=== PATIENT | female | born 1945 | race Caucasian/White ===

== ENCOUNTER → 2016-12-29 | Outpatient (CLI) | payer OTHER, MEDICARE ==
[~2016-12-29] MED LIST: DILT-115 PO; EFFSR150 PO; LATA0.009 OPB; ONDA4TAB10 SL; OXYC-57 PO; POTA1080 PO; PRLSR20 PO
== END | disposition home or self-care (01) ==
LOC: C.CPL 10:57
PROVIDERS: ATTEND Orthopaedic Surgery Sports Medicine
DX: Z01.810 Encounter for preprocedural cardiovascular examination (principal)

== ENCOUNTER → 2017-01-11 | Outpatient (CLI) | payer OTHER, MEDICARE ==
--- NOTE | 2017-01-11 11:12 | DIAGNOSTIC IMAGING REPORT ---
HEAD CT NONCONTRAST CT DOSE: 638.56 mGycm HISTORY: Headache R51 [id number] TECHNIQUE: Multiaxial CT images of the head were performed without the use of intravenous contrast. Comparison: None. Findings: The paranasal sinuses and mastoid air cells are clear. The calvarium and skull base are intact. The ventricles and sulci are within normal limits. There is no mass, hematoma, midline shift, or acute infarct. Impression: No acute intracranial abnormality. Electronically signed by: Hesham Leal M.D. 01/11/2017 11:11 AM Dictated Date/Time: 01/11/2017 11:10 AM
== END | disposition home or self-care (01) ==
LOC: C.CTS 10:59
PROVIDERS: ATTEND Family Medicine
DX: R51 Headache (principal); W19.XXXA Unspecified fall, initial encounter

== ENCOUNTER → 2017-03-13 | Outpatient (CLI) | payer OTHER, MEDICARE ==
[2017-03-13 10:35] LABS: CALCIUM 9.1 mg/dl (8.5-10.1)
[2017-03-13 10:37] LABS: ALT/SGPT 32 U/L (12-78); AST/SGOT 18 U/L (15-37); BLOOD UREA NITROGEN 28 mg/dl (7-18); BUN/CREATININE RATIO 23.6 (10-20); CARBON DIOXIDE 29 mmol/L (21-32); CHLORIDE 106 mmol/L (98-107); CHOLESTEROL 213 mg/dl (0-200); GLUCOSE 109 mg/dl (70-99); POTASSIUM 4.2 mmol/L (3.5-5.1); SODIUM 142 mmol/L (136-145); TRIGLYCERIDES 136 mg/dl (0-150); VERY LOW DENSITY LIPOPROT CALC 27 mg/dl
[2017-03-13 10:39] LABS: ALB/GLOB RATIO 1.1 (0.9-2); ALKALINE PHOSPHATASE 140 U/L (45-117); CHOLESTEROL/HDL RATIO 2.3; HDL CHOLESTEROL 92 mg/dl; LDL CHOLESTEROL CALCULATED 94 mg/dl
[2017-03-13 11:03] LABS: ESTIMATED AVERAGE GLUCOSE 117 mg/dl; HA1C FLAG Normal (Normal)
== END | disposition home or self-care (01) ==
LOC: C.LAB1850 09:32
PROVIDERS: ATTEND Internal Medicine
DX: E78.00 Pure hypercholesterolemia, unspecified (principal); N20.0 Calculus of kidney; R73.01 Impaired fasting glucose

== ENCOUNTER 2017-06-16 03:55 | Emergency (ER) | payer OTHER, MEDICARE ==
[~2017-06-16] VITALS: Ht 160 cm; Wt 113.7 kg
[~2017-06-16 03:55] MED LIST changes: -ONDA4TAB10 SL; -OXYC-57 PO
[2017-06-16 04:01] VITALS: BP 168/96; PULSE 106; TEMP 36.7; O2SAT 94; Ht 160 cm; Wt 113.7 kg
[2017-06-16] MEDS ORDERED: OXYCODONE/ACETAMINOPHEN 5-325 TAB PO ONE (04:30)
--- NOTE | 2017-06-16 04:34 | EMERGENCY ROOM VISIT NOTE ---
History Report prepared by Scribe: Slava Mcclure Under the Supervision of: Dr. Arnaldo Lopez D.O. First contact with patient: 04:05 Chief Complaint: FOOT PAIN Stated Complaint: FOOT PAIN History of Present Illness The patient is a 72 year old female who presents to the Emergency Room with complaints of constant right third toe pain beginning just prior to arrival. She states that she got up to go to the bathroom during the night and stubbed her toe on a door. She states that her toe appears stuck to the side. Source of History: patient Onset: Just prior to arrival Position: toe(s) (right third) Timing: constant Review of Systems See HPI for pertinent positives and negatives. A total of six systems were reviewed and were otherwise negative. Past Medical & Surgical Medical Problems: (1) Depressive Disorder Nec (2) Diverticulitis Colon (W/O Ment Of Hemorrhage) (3) Diverticulosis Colon (W/O Ment Of Hemorrhage) (4) Esophageal Reflux (5) Hypertension Nos (6) Migraine Unspecified W/O Intract Mgrn W/O Status Migrainosus (7) Pure Hypercholesterolem Surgical Problems: (1) Postoperative state (2) S/P cervical spinal fusion (3) Tubal Ligation Status Family History FH: myocardial infarction Social History Smoking Status: Never Smoker Drug Use: none Marital Status: Occupation Status: retired Current/Historical Medications Scheduled Diltiazem Hcl Ext Rel (Tiazac), 240 MG PO DAILY Latanoprost 0.005% Oph (Xalatan 0.005% Oph), 1 DROP OPB HS Omeprazole (Prilosec), 20 MG PO DAILY Potassium Citrate (Urocit-K), 1,620 MG PO DAILY Venlafaxine Ext Rel (Effexor Extended Rel *), 150 MG PO DAILY Allergies Coded Allergies: No Known Allergies (Verified , 05/30/16) Physical Exam Vital Signs Date Time Temp Pulse Resp B/P (MAP) Pulse Ox O2 Delivery O2 Flow Rate FiO2 06/16/17 04:01 36.7 106 18 168/96 94 Room Air Physical Exam GENERAL: Awake, alert, well-appearing, in no distress MUSCULOSKELETAL: Chest examination reveals no tenderness. The back is symmetrical on inspection without obvious abnormality. There is no CVA tenderness to palpation. No joint edema. Right third toe is deformed and displaced. NVI distally and proximally. NEURO: Normal sensorium. No sensory or motor deficits noted. SKIN: No rash or jaundice noted. Medical Decision & Procedures ER Provider Diagnostic Interpretation: Three View Right Foot X-ray interpreted by me: positive for fracture of the right third phalanx. Medications Administered Medications (Trade) Dose Ordered Sig/Mckenna Route Start Time Stop Time Status Last Admin Dose Admin Oxycodone/ Acetaminophen (Percocet 5-325mg Tab) 1 tab NOW ONCE PO 06/16/17 04:30 06/16/17 04:31 DC 06/16/17 04:30 1 TAB ED Course 0415: The patient was evaluated in room B10. A complete history and physical exam was performed. 0430: Ordered Percocet 5-325 mg 1 tab PO. 0435: I reevaluated the patient. Discussed results and discharge instructions: she verbalized understanding and agreement. The patient is ready for discharge. Patient was placed in a hard sole shoe as well as had her toes mundo taped. Patient does have pain medicine at home she was given Percocet here she will be referred to orthopedics Medical Decision Differential diagnoses include but are not limited to; fracture, contusion, and dislocation. Impression Primary Impression: Closed fracture of phalanx of right third toe Scribe Attestation The scribe's documentation has been prepared under my direction and personally reviewed by me in its entirety. I confirm that the note above accurately reflects all work, treatment, procedures, and medical decision making performed by me. Departure Information Dispostion Home / Self-Care Referrals Pro,Luis Orr M.D. (PCP) Damien Dubois MD Patient Instructions ED Fx Toe Closed, My [facility]
--- NOTE | 2017-06-16 07:59 | DIAGNOSTIC IMAGING REPORT ---
RIGHT FOOT MIN 3 VIEWS ROUTINE CLINICAL HISTORY: Right foot pain following injury. COMPARISON: None FINDINGS: Alignment of the tarsometatarsal joints is anatomic. There is moderate arthritis of these articulations. There is an acute oblique mildly displaced fracture within the base and proximal shaft of the proximal phalanx of the right third toe. There is lateral deviation of the third toe. IMPRESSION: Oblique mildly displaced acute fracture of the proximal phalanx of the right third toe. Electronically signed by: Brenton Cash M.D. 06/16/2017 7:58 AM Dictated Date/Time: 06/16/2017 7:56 AM
== END 2017-06-16 04:44 | disposition home or self-care (01) ==
LOC: C.EDB 03:56
DX: S92.331A Displaced fracture of third metatarsal bone, right foot, initial encounter for closed fracture (principal); W22.09XA Striking against other stationary object, initial encounter; F32.9 Major depressive disorder, single episode, unspecified; K21.9 Gastro-esophageal reflux disease without esophagitis; I10 Essential (primary) hypertension; E78.00 Pure hypercholesterolemia, unspecified; Z98.1 Arthrodesis status; Z98.51 Tubal ligation status; Z82.49 Family history of ischemic heart disease and other diseases of the circulatory system; Z79.899 Other long term (current) drug therapy

== ENCOUNTER → 2017-07-12 | Outpatient (CLI) | payer OTHER, MEDICARE ==
--- NOTE | 2017-07-12 11:20 | DIAGNOSTIC IMAGING REPORT ---
RIGHT FOOT 3 VIEWS HISTORY: Follow-up right foot fracture. COMPARISON: Right foot 06/16/2017. FINDINGS: Improved alignment of the oblique fracture within the proximal shaft of the proximal phalanx of the right third toe. There is approximately 2 mm of lateral displacement remaining. No significant bony bridging or callus formation at this time to suggest healing. Plantar heel spur. Degenerative changes within the midfoot. The Lisfranc joint is intact. No dislocation. Mild soft tissue swelling at the third toe. IMPRESSION: Oblique slightly displaced fracture at the proximal phalanx of the right third toe which demonstrates improved anatomic alignment. However, no significant healing at this time. Electronically signed by: Andrea Daigle M.D. 07/12/2017 11:19 AM Dictated Date/Time: 07/12/2017 11:17 AM
== END | disposition home or self-care (01) ==
LOC: C.RDSM 11:15
PROVIDERS: ATTEND Physician Assistant
DX: S92.511A Displaced fracture of proximal phalanx of right lesser toe(s), initial encounter for closed fracture (principal); X58.XXXA Exposure to other specified factors, initial encounter

== ENCOUNTER → 2017-08-02 | Outpatient (CLI) | payer OTHER, MEDICARE ==
--- NOTE | 2017-08-02 14:45 | DIAGNOSTIC IMAGING REPORT ---
RIGHT FOOT 3 VIEWS HISTORY: Follow-up right third toe fracture. COMPARISON: Right foot 07/12/2017. FINDINGS: There is again noted an oblique slightly displaced fracture within the mid shaft of the proximal phalanx of the third toe. Remains unchanged. This demonstrates up to 2 mm of lateral displacement. There is interval development of surrounding callus formation consistent with healing. No additional fractures identified. Soft tissue swelling at the third toe persists. Plantar heel spur. No radiopaque foreign bodies. IMPRESSION: Interval healing within the slightly displaced fracture at the proximal phalanx of the right third toe. Electronically signed by: Andrea Daigle M.D. 08/02/2017 2:44 PM Dictated Date/Time: 08/02/2017 2:41 PM
== END | disposition home or self-care (01) ==
LOC: C.RDSM 09:47
PROVIDERS: ATTEND Physician Assistant
DX: S92.511D Displaced fracture of proximal phalanx of right lesser toe(s), subsequent encounter for fracture with routine healing (principal); X58.XXXD Exposure to other specified factors, subsequent encounter

== ENCOUNTER → 2017-08-08 | Outpatient (CLI) | payer OTHER, MEDICARE ==
--- NOTE | 2017-08-08 07:55 | DIAGNOSTIC IMAGING REPORT ---
KUB CLINICAL HISTORY: Nephrolithiasis. FINDINGS: 2 AP supine abdominal radiographs are correlated with abdominal CT dated 11/13/2016. There is a nonobstructed abdominal bowel gas pattern noting moderate colonic fecal retention. There is no radiographic evidence of nephrolithiasis. Numerous phleboliths are identified in the pelvis. Cholecystectomy clips are noted. The skeletal structures are osteopenic. Moderate lumbosacral spondylosis is observed. IMPRESSION: There is no radiographic evidence of nephrolithiasis on today's examination. Electronically signed by: Shaka Naqvi M.D. 08/08/2017 7:53 AM Dictated Date/Time: 08/08/2017 7:52 AM
== END | disposition home or self-care (01) ==
LOC: C.RAD 07:23
PROVIDERS: ATTEND Urology
DX: N20.9 Urinary calculus, unspecified (principal)

== ENCOUNTER → 2017-08-23 | Outpatient (CLI) | payer OTHER, MEDICARE ==
[2017-08-23 12:51] LABS: MEAN CELL VOLUME 77.2 fL (80-100); MEAN CORPUSCULAR HEMOGLOBIN 24.4 pg (25-34); MEAN CORPUSCULAR HGB CONC 31.6 g/dl (32-36); MEAN PLATELET VOLUME 11.6 fL (7.4-10.4); PLATELET COUNT 313 K/uL (130-400); RED BLOOD COUNT 4.92 M/uL (4.2-5.4); WHITE BLOOD COUNT 4.91 K/uL (4.8-10.8)
[2017-08-23 13:42] LABS: ALT/SGPT 19 U/L (12-78); BLOOD UREA NITROGEN 18 mg/dl (7-18); BUN/CREATININE RATIO 16.5 (10-20); CALCIUM 9.2 mg/dl (8.5-10.1); CARBON DIOXIDE 27 mmol/L (21-32); CHLORIDE 108 mmol/L (98-107); CHOLESTEROL 217 mg/dl (0-200); GLUCOSE 106 mg/dl (70-99); POTASSIUM 4.3 mmol/L (3.5-5.1); SODIUM 142 mmol/L (136-145)
[2017-08-23 13:52] LABS: ALKALINE PHOSPHATASE 130 U/L (45-117); AST/SGOT 15 U/L (15-37); CHOLESTEROL/HDL RATIO 2.5; HDL CHOLESTEROL 88 mg/dl; LDL CHOLESTEROL CALCULATED 98 mg/dl; TRIGLYCERIDES 156 mg/dl (0-150); VERY LOW DENSITY LIPOPROT CALC 31 mg/dl
== END | disposition home or self-care (01) ==
LOC: C.LAB1850 10:23
PROVIDERS: ATTEND Internal Medicine
DX: R73.01 Impaired fasting glucose (principal); N20.0 Calculus of kidney; R74.8 Abnormal levels of other serum enzymes; E04.1 Nontoxic single thyroid nodule; E78.00 Pure hypercholesterolemia, unspecified

== ENCOUNTER → 2017-10-01 | Outpatient (CLI) | payer OTHER, MEDICARE | END | disposition home or self-care (01) | LOC: C.MAMM 09:48 | PROVIDERS: ATTEND Internal Medicine | DX: S92.919A Unspecified fracture of unspecified toe(s), initial encounter for closed fracture (principal); X58.XXXA Exposure to other specified factors, initial encounter ==

== ENCOUNTER 2018-02-07 03:23 | Emergency (ER) | payer OTHER, MEDICARE ==
[~2018-02-07] VITALS: Ht 160 cm; Wt 109.0 kg
[2018-02-07 03:28] VITALS: TEMP 36.4; Ht 160 cm; Wt 109.0 kg
[2018-02-07] MEDS ORDERED: SODIUM CHLORIDE 0.9% 500ML 500 ML IV STA (03:38)
[2018-02-07] MEDS ORDERED: ONDANSETRON INJ 2 MG/ML 2 ML VIAL IV STA (03:38)
[2018-02-07] MEDS ORDERED: MoRPHine SULFATE 4 MG/ML 1 ML CARP\\VIAL IV STA ×2 (03:38→05:09)
[2018-02-07 04:14] LABS: BASO % 0.3 %; BASO ABS # 0.03 K/uL (0-0.2); EOS % 0.5 %; EOS ABS # 0.06 K/uL (0-0.5); HEMOGLOBIN 11.8 g/dL (12.0-16.0); IG# 0.02 K/uL (0.00-0.02); LYMPH % 7.3 %; LYMPH ABS # 0.84 K/uL (1.2-3.4); MEAN CELL VOLUME 73.6 fL (80-100); MEAN CORPUSCULAR HEMOGLOBIN 23.5 pg (25-34); MEAN CORPUSCULAR HGB CONC 31.9 g/dl (32-36); MEAN PLATELET VOLUME 10.4 fL (7.4-10.4); MONO % 9.5 %; NEUT % 82.2 %; NEUT ABS # 9.47 K/uL (1.4-6.5); PLATELET COUNT 308 K/uL (130-400); RED CELL DISTRIBUTION WIDTH CV 17.3 % (11.5-14.5); RED CELL DISTRIBUTION WIDTH SD 46.5 fL (36.4-46.3); WHITE BLOOD COUNT 11.52 K/uL (4.8-10.8)
[2018-02-07 04:33] LABS: ALBUMIN 3.5 gm/dl (3.4-5.0); ALT/SGPT 17 U/L (12-78); AST/SGOT 8 U/L (15-37); BLOOD UREA NITROGEN 28 mg/dl (7-18); CALCIUM 9.2 mg/dl (8.5-10.1); CARBON DIOXIDE 25 mmol/L (21-32); CREATININE 1.21 mg/dl (0.60-1.20); GLUCOSE 116 mg/dl (70-99); LIPASE 121 U/L (73-393); SODIUM 136 mmol/L (136-145)
[2018-02-07 04:36] LABS: ALKALINE PHOSPHATASE 149 U/L (45-117); TOTAL PROTEIN 7.2 gm/dl (6.4-8.2)
[2018-02-07] MEDS ORDERED: OPTIRAY 320 IV PRN (04:45)
--- NOTE | 2018-02-07 06:11 | EMERGENCY ROOM VISIT NOTE ---
ED Visit Note First contact with patient: 03:32 I saw this patient in conjunction with Unique Soler PA-C. I agree with her decision making and treatment plan.
[2018-02-07] MEDS ORDERED: ONDANSETRON HOME PACK 4MG OD TAB PO ONE (06:30)
--- NOTE | 2018-02-07 06:30 | EMERGENCY ROOM VISIT NOTE ---
History First contact with patient: 03:32 Chief Complaint: ABDOMINAL PAIN Stated Complaint: ABDOMINAL PAIN, SWEATS History of Present Illness The patient is a 72 year old female who presents to the Emergency Room with complaints of left lower quadrant pain for the past several hours described as aching, ranging in severity 7 out of 10. Nothing makes it better or worse. It does not radiate. Patient complains of urinary frequency without urgency or dysuria. She has had kidney stones before and this feels somewhat similar. She has also had diverticulosis without diverticulitis. Patient denies chest pain, dyspnea, fever, chills, vomiting, diarrhea, back pain, flank pain, weakness. She is tolerating p.o. fluids and food. Review of Systems An 10 system review of systems was completed with positives and pertinent negatives listed in the HPI. Past Medical/Surgical History Medical Problems: (1) Depressive Disorder Nec (2) Diverticulitis Colon (W/O Ment Of Hemorrhage) (3) Diverticulosis Colon (W/O Ment Of Hemorrhage) (4) Esophageal Reflux (5) Hypertension Nos (6) Migraine Unspecified W/O Intract Mgrn W/O Status Migrainosus (7) Pure Hypercholesterolem Surgical Problems: (1) Postoperative state (2) S/P cervical spinal fusion (3) Tubal Ligation Status Family History FH: myocardial infarction Social History Smoking Status: Never Smoker Smokeless Tobacco Use: No Drug Use: none Marital Status: Housing Status: lives with family Occupation Status: retired Current/Historical Medications Scheduled Diltiazem Hcl Ext Rel (Tiazac), 240 MG PO DAILY Latanoprost 0.005% Oph (Xalatan 0.005% Oph), 1 DROP OPB HS Omeprazole (Prilosec), 20 MG PO DAILY Potassium Citrate (Urocit-K), 1,620 MG PO DAILY Venlafaxine Ext Rel (Effexor Extended Rel *), 150 MG PO DAILY Physical Exam Vital Signs Date Time Temp Pulse Resp B/P (MAP) Pulse Ox O2 Delivery O2 Flow Rate FiO2 02/07/18 06:02 112/47 02/07/18 05:55 92 15 96 02/07/18 05:32 110/56 02/07/18 05:25 95 23 02/07/18 05:03 134/53 02/07/18 04:31 142/75 02/07/18 04:25 89 24 100 02/07/18 04:20 83 02/07/18 04:20 85 24 98 02/07/18 04:18 Nasal Cannula 1.0 02/07/18 04:13 155/86 02/07/18 03:28 36.4 103 18 142/100 99 Room Air Physical Exam VITALS: Vitals are noted on the nurse's note and reviewed by myself. Vital signs hypertensive. GENERAL: Pleasant female, in no acute distress, nondiaphoretic, well-developed well-nourished. SKIN: The skin was without rashes, erythema, edema, or bruising. There is no tenting of the skin. Capillary reflex less than 2 seconds. HEAD: Normocephalic atraumatic. EARS: External auditory canals clear, tympanic membranes pearly hyde without erythema or effusion bilaterally. EYES: Pupils equal round and reactive to light and accommodation. Conjunctivae without injection, sclerae without icterus. Extraocular movements intact. NOSE: Patent, turbinates without inflammation or discharge. MOUTH: Mucous membranes moist. Pharynx without erythema or exudate. Uvula midline. Airway patent. Tongue does not deviate. NECK: Supple without nuchal rigidity. No lymphadenopathy. No thyromegaly. Cervical spine is nontender. No JVD. HEART: Regular rate and rhythm 2/6 systolic murmur LUNGS: Clear to auscultation bilaterally without wheezes, rales or rhonchi. No retractions or accessory muscle use. ABDOMEN: Positive bowel sounds x 4. Normal tympanic percussion. Soft, tender to palpation left lower quadrant, without masses or organomegaly. [place] sign negative. No guarding or rebound tenderness. No CVA tenderness MUSCULOSKELETAL: No muscle atrophy, erythema, or edema noted. NEURO: Patient was alert and oriented to person place and time. Normal sensation to light and sharp touch. No focal neurological deficits. Medical Decision & Procedures Laboratory Results 02/07/18 03:50 Red Blood Count 5.03, Mean Corpuscular Volume 73.6, Mean Corpuscular Hemoglobin 23.5, Mean Corpuscular Hemoglobin Concent 31.9, Mean Platelet Volume 10.4, Neutrophils (%) (Auto) 82.2, Lymphocytes (%) (Auto) 7.3, Monocytes (%) (Auto) 9.5, Eosinophils (%) (Auto) 0.5, Basophils (%) (Auto) 0.3, Neutrophils # (Auto) 9.47, Lymphocytes # (Auto) 0.84, Monocytes # (Auto) 1.10, Eosinophils # (Auto) 0.06, Basophils # (Auto) 0.03 02/07/18 03:50 Test 02/07/18 03:50 02/07/18 04:00 White Blood Count 11.52 K/uL (4.8-10.8) Red Blood Count 5.03 M/uL (4.2-5.4) Hemoglobin 11.8 g/dL (12.0-16.0) Hematocrit 37.0 % (37-47) Mean Corpuscular Volume 73.6 fL (80-100) Mean Corpuscular Hemoglobin 23.5 pg (25-34) Mean Corpuscular Hemoglobin Concent 31.9 g/dl (32-36) Platelet Count 308 K/uL (130-400) Mean Platelet Volume 10.4 fL (7.4-10.4) Neutrophils (%) (Auto) 82.2 % Lymphocytes (%) (Auto) 7.3 % Monocytes (%) (Auto) 9.5 % Eosinophils (%) (Auto) 0.5 % Basophils (%) (Auto) 0.3 % Neutrophils # (Auto) 9.47 K/uL (1.4-6.5) Lymphocytes # (Auto) 0.84 K/uL (1.2-3.4) Monocytes # (Auto) 1.10 K/uL (0.11-0.59) Eosinophils # (Auto) 0.06 K/uL (0-0.5) Basophils # (Auto) 0.03 K/uL (0-0.2) RDW Standard Deviation 46.5 fL (36.4-46.3) RDW Coefficient of Variation 17.3 % (11.5-14.5) Immature Granulocyte % (Auto) 0.2 % Immature Granulocyte # (Auto) 0.02 K/uL (0.00-0.02) Anion Gap 9.0 mmol/L (3-11) Est Creatinine Clear Calc Drug Dose 50.5 ml/min Estimated GFR () 52.1 Estimated GFR (Non- 45.0 BUN/Creatinine Ratio 23.5 (10-20) Calcium Level 9.2 mg/dl (8.5-10.1) Total Bilirubin 0.4 mg/dl (0.2-1) Direct Bilirubin < 0.1 mg/dl (0-0.2) Aspartate Amino Transf (AST/SGOT) 8 U/L (15-37) Alanine Aminotransferase (ALT/SGPT) 17 U/L (12-78) Alkaline Phosphatase 149 U/L (45-117) Total Protein 7.2 gm/dl (6.4-8.2) Albumin 3.5 gm/dl (3.4-5.0) Lipase 121 U/L (73-393) Urine Color YELLOW Urine Appearance CLEAR (CLEAR) Urine pH 7.0 (4.5-7.5) Urine Specific [place] 1.021 (1.000-1.030) Urine Protein NEG (NEG) Urine Glucose (UA) NEG (NEG) Urine Ketones TRACE (NEG) Urine Occult Blood NEG (NEG) Urine Nitrite NEG (NEG) Urine Bilirubin NEG (NEG) Urine Urobilinogen NEG (NEG) Urine Leukocyte Esterase NEG (NEG) Bedside Lactic Acid Venous 1.91 mmol/L (0.90-1.70) Medications Administered Medications (Trade) Dose Ordered Sig/Mckenna Route Start Time Stop Time Status Last Admin Dose Admin Sodium Chloride 500 ml @ 999 mls/hr Q31M STAT IV 02/07/18 03:38 02/07/18 04:08 DC 02/07/18 03:59 999 MLS/HR Ondansetron HCl (Zofran Inj) 4 mg NOW STAT IV 02/07/18 03:38 02/07/18 03:41 DC 02/07/18 04:00 4 MG Morphine Sulfate (MoRPHine SULFATE INJ) 4 mg NOW STAT IV 02/07/18 03:38 02/07/18 03:41 DC 02/07/18 04:03 4 MG Morphine Sulfate (MoRPHine SULFATE INJ) 4 mg NOW STAT IV 02/07/18 05:09 02/07/18 05:10 DC 02/07/18 05:37 4 MG ED Course Prior records/ancillary studies reviewed. Triage Nursing notes reviewed. Additional history obtained from family. The patient's history was concerning for abdominal pain. Differential diagnosis: Etiologies such as appendicitis, diverticulitis, PUD, biliary pathology, UTI, pancreatitis, obstruction, mesenteric ischemia, aortic pathology, infections, inflammatory bowel disease, renal colic, as well as others were entertained. Physical examination findings: As above. ER treatment provided: Morphine, Zofran, IV fluids On reassessment the patient felt better. Diagnostics interpreted by me: The labs revealed mild leukocytosis. Lactate 1.9 Imaging studies: CT concerning for colitis. No diverticulitis per radiology. Exam and history seem consistent with colitis. Patient was offered admission declined. I felt this is reasonable. She is advised to do clear liquid diet until her symptoms have resolved. Her will stay home with her today and she will follow-up with her family doctor within 24 hours. Patient was neurovascularly and neurologically intact. She was well-appearing. She was afebrile nontoxic. Patient was advised to return to the ER meaty for abdominal pain, black or blood in the stool, fevers, vomiting, worsening signs or symptoms or as needed. By the evaluation outlined above emergent etiologies such as appendicitis, diverticulitis, PUD, biliary pathology, UTI, pancreatitis, obstruction, mesenteric ischemia, aortic pathology, renal colic, as well as others were deemed relatively unlikely. The pt informed about the findings as listed above. All questions were answered and pleased with the treatment. Return instructions were outlined and the patient was discharged in stable condition. Referral: The patient was referred back to their primary care physician for follow-up in 24 hours for a recheck of the current condition. Case reviewed with my attending The chart was completed utilizing [employer] Speech voice recognition software. Grammatical errors, random word insertions, pronoun errors, and incomplete sentences are an occassional consequence of this system due to software limitations, ambient noise, and hardware issues. Any formal questions or concerns about the content, text, or information contained within the body of this dictation should be directly addressed to the physician human resource assistant for clarification. Medical Decision As above Medication Reconcilliation Current Medication List: was personally reviewed by me Blood Pressure Screening Patient's blood pressure: Elevated blood pressure Blood pressure disposition: Elevated BP felt to be situational Impression Primary Impression: Colitis, acute Departure Information Dispostion Home / Self-Care Condition GOOD Referrals Pro,Luis Orr M.D. (PCP) Patient Instructions My [facility] Additional Instructions DO NOT drive, drink alcohol, operate machinery, or perform dangerous activities today. You were given medications in the ER that can affect your ability to safely function or operate a vehicle. Acetaminophen(Tylenol) may be used for fever or pain. Use 1000mg every six hours as needed. Avoid using more than 3000mg in a 24 hour period. Zofran 4mg: Take one every six hours as needed for nausea. Avoid alcohol, operating machinery or dangerous equipment, working on ladders or roofs, DRIVING , or situations where being under the influence may be dangerous. Rest and drink plenty of fluids as tolerated. Slow sips of water or sports drinks are recommended instead of large amounts all at once. Continue current medications. Once your stomach is settled start with a clear liquid diet (jello, soup broth, etc.) and then advance once your abdominal pain has resolved. Return to the ER immediately for worsening or persistent abdominal pain, vomiting, fevers, chest pains, difficulty breathing, black or bloody stools, worsening of your condition, or as needed. Follow up with your primary physician in 24 hours for a recheck of your current condition.
[2018-02-07] MEDS ORDERED: VENL150T33 PO (06:33)
[2018-02-07 06:50] VITALS: BP 121/65; PULSE 93; O2SAT 96
--- NOTE | 2018-02-07 07:08 | DIAGNOSTIC IMAGING REPORT ---
ABD/PELVIS IV CONTRAST ONLY CLINICAL HISTORY: 72 years-old Female presenting with llq pain radiating to the back. TECHNIQUE: Multidetector CT of the abdomen and pelvis was performed without the use of intravenous contrast. IV contrast: None. A dose lowering technique was used consistent with the principles of ALARA (as low as reasonably achievable). COMPARISON: 11/13/2016. CT DOSE (mGy.cm): The estimated cumulative dose is 1289.47 mGy.cm. FINDINGS: Postal Service Clerk topogram: Cholecystectomy clips. Lung bases: Minimal basilar opacities, likely atelectasis. Mitral annular calcification. Normal heart size. No pericardial or pleural effusion. Liver: Normal morphology. Suggestion of hepatic steatosis. No focal lesion. Patent hepatic vasculature. Biliary: Mild biliary ductal prominence likely a reservoir effect in the post cholecystectomy state. Gallbladder surgically absent. Pancreas: Mild parenchymal atrophy. Spleen: Normal. Adrenal glands: Normal. Kidneys and ureters: Chronic left renal atrophy. Nonobstructing 3 mm calculus in the right kidney at the upper pole. No hydronephrosis. Small simple cyst suspected at the lower pole the right kidney. Ureters normal. Bladder: Incompletely evaluated secondary to underdistention. Pelvic organs: Globular uterine fundus suggests underlying fibroids. Normal ovaries. Bowel: Diverticulosis of the sigmoid colon. Extensive wall thickening of the descending colon without associated diverticulosis. Pericolonic fat infiltration along the descending colon with trace fluid in the left paracolic gutter. The splenic flexure and more proximal colon are normal. No bowel obstruction. Peritoneal cavity: No free fluid or intraperitoneal gas. Lymph nodes: No enlarged lymph nodes in the abdomen or pelvis. Vasculature: Atherosclerosis of the normal caliber abdominal aorta. Widely patent celiac, superior mesenteric, and inferior mesenteric arteries. IVC patent. Abdominal wall: Normal. Musculoskeletal: Degenerative changes of the spine. IMPRESSION: 1. Extensive wall thickening and pericolonic fat infiltration along the descending colon. This is felt to most likely represent infectious colitis. Given the absence of involvement of the splenic flexure and the patency of abdominal vessels, this is felt unlikely to represent ischemic colitis. Recommend follow-up to resolution versus subsequent colonoscopy to ensure the absence of an underlying neoplasm. 2. Sigmoid diverticulosis. No diverticulitis. 3. Chronic left renal atrophy. 4. 3 mm nonobstructing right renal calculus. 5. Hepatic steatosis. Electronically signed by: Aniceto Painting M.D. 02/07/2018 7:07 AM Dictated Date/Time: 02/07/2018 6:53 AM
== END 2018-02-07 06:51 | disposition home or self-care (01) ==
LOC: C.EDB 03:24
DX: K52.9 Noninfective gastroenteritis and colitis, unspecified (principal); F32.9 Major depressive disorder, single episode, unspecified; K21.9 Gastro-esophageal reflux disease without esophagitis; I10 Essential (primary) hypertension; E78.00 Pure hypercholesterolemia, unspecified

== ENCOUNTER → 2018-02-26 | Outpatient (CLI) | payer OTHER, MEDICARE ==
[~2018-02-26] MED LIST changes: -EFFSR150 PO; -LATA0.009 OPB; +VENL150T33 PO
[2018-02-26 12:28] LABS: BASO % 0.7 %; BASO ABS # 0.04 K/uL (0-0.2); EOS % 1.9 %; EOS ABS # 0.11 K/uL (0-0.5); HEMATOCRIT 37.9 % (37-47); HEMOGLOBIN 11.8 g/dL (12.0-16.0); LYMPH ABS # 0.83 K/uL (1.2-3.4); MEAN CORPUSCULAR HEMOGLOBIN 23.4 pg (25-34); MEAN CORPUSCULAR HGB CONC 31.1 g/dl (32-36); MEAN PLATELET VOLUME 10.8 fL (7.4-10.4); MONO % 9.1 %; MONO ABS # 0.54 K/uL (0.11-0.59); NEUT % 74.3 %; NEUT ABS # 4.42 K/uL (1.4-6.5); PLATELET COUNT 378 K/uL (130-400); RED CELL DISTRIBUTION WIDTH CV 17.7 % (11.5-14.5); RED CELL DISTRIBUTION WIDTH SD 48.3 fL (36.4-46.3); WHITE BLOOD COUNT 5.94 K/uL (4.8-10.8)
[2018-02-26 12:34] LABS: HEMOGLOBIN A1C 5.9 % (4.5-5.6)
[2018-02-26 12:35] LABS: ALBUMIN 3.6 gm/dl (3.4-5.0); ALT/SGPT 18 U/L (12-78); BLOOD UREA NITROGEN 24 mg/dl (7-18); CARBON DIOXIDE 26 mmol/L (21-32); CHOLESTEROL 209 mg/dl (0-200); CREATININE 1.08 mg/dl (0.60-1.20); GLUCOSE 111 mg/dl (70-99); POTASSIUM 4.4 mmol/L (3.5-5.1); SODIUM 141 mmol/L (136-145)
[2018-02-26 12:46] LABS: ALKALINE PHOSPHATASE 135 U/L (45-117); AST/SGOT 13 U/L (15-37); LDL CHOLESTEROL CALCULATED 98 mg/dl
== END | disposition home or self-care (01) ==
LOC: C.LAB1850 10:20
PROVIDERS: ATTEND Internal Medicine
DX: E78.00 Pure hypercholesterolemia, unspecified (principal); N20.0 Calculus of kidney; R73.01 Impaired fasting glucose; I10 Essential (primary) hypertension